=== PATIENT | female | born 2000 | race Caucasian/White ===

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

== ENCOUNTER 2021-01-23 06:55 | Inpatient (IN) | payer MEDICAID, SELFPAY ==
[2021-01-23] VITALS (56 sets, daily range): BP systolic 98–155; BP diastolic 55–96; PULSE 57–152; TEMP 36.7–37.5; O2SAT 85–100; BMI 37.1
[2021-01-23] MEDS: Lactated Ringers 1,000 ML 50 ML IV (07:35)
[2021-01-23] MEDS: Oxytocin 30 units/NS 500 ml 30 UNITS/500 ML IV.SOLN IV (07:52)
[2021-01-23 07:53] LABS: Absolute Lymphocyte Count 2.43 X10^3/uL (0.83-4.51); Absolute Neutrophil Count 8.3 X10^3/uL (2.0-7.7); Basophil# 0.04 X10^3/uL; Basophil% 0.3 % (0-1); Eosinophil# 0.31 X10^3/uL; Eosinophils% 2.6 % (0-5); Hematocrit 37.5 % (37-47); Hemoglobin 12.4 g/dL (12.0-15.0); Lymphocyte # 2.43 X10^3/ul (0.83-4.51); Lymphocyte % 20.3 % (19-41); Mean Corp Hgb Conc 33.1 g/dL (32-36); Mean Corpuscular Volume 87.8 fL (81-99); Mean Platelet Vol. 11.1 fl (6.2-12.0); Monocyte% 6.7 % (0-10); NRBC Flagged by Analyzer 0 % (0-5); Neutrophil % 69.3 % (47-70); Platelet Count 257 K/mm3 (150-450); RBC Distribution Width SD 43.8 fl (35.1-43.9); Red Blood Count 4.27 M/mm3 (4.2-5.4)
[2021-01-23 09:56] LABS: Amphetamine Urine VISTA NEGATIVE (<1000 ng/mL); Barbiturate Urine VISTA NEGATIVE (< 200 ng/mL); Benzodiazepine Urine VISTA NEGATIVE (< 200 ng/mL); Cocaine Urine VISTA NEGATIVE (< 300 ng/mL); Ecstacy Urine VISTA NEGATIVE (< 500 ng/mL); Methadone Urine VISTA NEGATIVE (< 300 ng/mL); PCP Urine VISTA NEGATIVE (< 25 ng/mL); THC Urine VISTA POSITIVE (< 50 ng/mL); Vista UDS pH Range 7
[2021-01-23] MEDS: Lactated Ringers 500 ML 999 ML IV (11:30)
[2021-01-23] MEDS: fentaNYL-bupivacaine (epidural) 100 ML BAG EPIDURAL ×2 (12:40→17:46)
[2021-01-23] MEDS: Lactated Ringers 1,000 ML 200 ML IV (15:12)
[2021-01-23] MEDS: Ondansetron 4 MG/2 ML Vial IV (15:32)
[2021-01-23] MEDS: Amnioinfusion- 0.9% NS 1,000 ML IV.SOLN. 200 ML INTRA-UTER (18:27)
--- NOTE | 2021-01-23 18:51 | HP.PCM_ITS ---
History Date of Admission: 01/23/21 Final REGINALD: 01/29/21 Final REGINALD Source: US <20 weeks Gestational age: 39 Weeks and 1 Days History of this : This is a 20 year-old, 4 para 1-0-2-1 at the 9-/7 weeks presents for elective induction of labor., Maternal obesity with current BMI of 37, marijuana use in , and suspected LGA fetus with mall amniotic fluid level. She tested positive for cannabis during the . Obstetrical history is significant for 1 previous full-term vaginal delivery of a 9 pound 6 ounce fetus, ectopic treated with methotrexate, and 1 first trimester miscarriage for which a D&C was not required. Estimated weight on his fetus is 95th percentile by third trimester ultrasound. Allergies No Known Allergies Allergy (Verified 01/23/21 09:17) Home Medications: Home Medications Caplet 01/23/21 Smoking Status: Current every day smoker Alcohol: None Substance Use Type: Marijuana Number of Fetus(es): 1 History Past Pregnancies: Past Pregnancies Delivery Date Name GA/ Weeks Outcome Route Wt Infant Sex Labor Length Anesthesia Delivery Location Provider FOB Expected Delivery Method: Spontaneous Vaginal Review of Systems Constitutional: Denies: Chills, Fever Eyes: Denies: Blurred vision Cardiovascular: Reports: Edema. Denies: Chest Pain, Chest Pressure Respiratory: Denies: Cough, Shortness of Breath Gastrointestinal: Denies: Diarrhea, Nausea Genitourinary: Denies: Dysuria Skin: Denies: Rash Neurological: Denies: Blurred vision, Double vision, Change in Speech, Slurred speech Physical Exam Vitals: Vital Signs Temp Pulse BP Pulse Ox 98.5 F 85 136/74 H 98 01/23/21 14:54 01/23/21 18:50 01/23/21 18:50 01/23/21 17:14 General: Alert, Cooperative, No apparent distress Cardiovascular: Regular rate Lungs: Normal air movement Abdomen: Soft, Non Tender, Non-Distended, Gravid, Appropriate for Gestational Age Extremities:: Other - edema 1+ Neurological: Cranial nerves II-XII grossly intact, Deep Tendon Reflexes 2+/4 and Symmetrical, Neuro grossly intact FLIGHT STEWARD: Normal external genitalia Estimated gestational size: Appropriate for gestational size Presentation: Cephalic Assessment/Plan This is a 20 year-old, 4 para 1-0-2-1 and 1/7 weeks gestation for induction of labor. Estimated weight is 95th percentile. Clinically estimated weight is likely to be between 4000 4500 g. Patient has proven pelvis. Pelvis is clinically adequate to expect vaginal delivery. May have epidural as needed. Pitocin and artificial rupture of membranes for induction.
[2021-01-23] MEDS: Oxytocin 30 units/NS 500 ml 30 UNITS/500 ML IV.SOLN 334 UNITS IV (19:29)
[2021-01-23] MEDS: Methylergonovine 0.2 MG/ML Ampul IM (19:48)
--- NOTE | 2021-01-23 19:57 | OP.PCM_ITS ---
Vaginal Delivery Maternal Presentation: Elective Induction Method of Induction: Pitocin, Amniotomy Amniotic Membrane Rupture Type: Artificial Amniotic Fluid Description: Clear Final REGINALD: 01/29/21 Final REGINALD Source: US <20 weeks Gestational age: 39 Weeks and 1 Days Date of Procedure: 01/23/21 Pre-Operative Diagnosis: labor Post-Operative Diagnosis: same Surgery/ Procedure Performed: Spontaneous Vaginal Delivery Type of Anesthesia: Epidural, Local with 1% lidocaine - 15 cc Description of Procedure: A vigorous male was delivered DORIS over a second-degree perineal laceration. The remainder the infant was delivered with maternal pushing and gentle traction only in less than 15 seconds. The Pitocin infusion was initiated for active management of the third stage. The cord was clamped and cut after 1 minute. The was attended to by the waiting nursing staff. The placenta was delivered spontaneously and intact. The cervix and vagina were intact. The second-degree perineal laceration was repaired with 3-0 Vicryl suture in a running standard fashion. Sponge and needle counts were correct. A vaginal sweep was completed by me. 1 dose of Methergine was given IM for mild atony without hemorrhage. Presentation: DORIS Placental Delivery Description: Spontaneous Placenta Disposition: [facility] Cord Vessel Description: 3 Vessels Nuchal Cord Compression: With compression Cord Entanglement: None Drain: Young to straight drain Estimated Blood Loss: 400 Infant A gender: Male - [place] (1 minute): 9 (5 minute): 9 Episiotomy Description: None Laceration: 2nd degree Medications given after delivery: IV Pitocin Complications: None
[2021-01-23] MEDS: Acetaminophen 500 MG Tablet 1000 MG PO (21:39)
[2021-01-23] MEDS: 0.9% Saline Lock 10 ML Syringe IV (21:58)
[2021-01-24 00:34] VITALS: BP 127/75; PULSE 80; RESP 16; TEMP 36.8
[2021-01-24 04:02] VITALS: BP 115/65; PULSE 85; RESP 14; TEMP 36.2
[2021-01-24 04:15] LABS: Hematocrit 36.2 % (37-47); Hemoglobin 12.2 g/dL (12.0-15.0); Mean Corp Hgb Conc 33.7 g/dL (32-36); Mean Corpuscular Hgb 29.5 pg (27.0-32.0); Mean Corpuscular Volume 87.7 fL (81-99); Mean Platelet Vol. 10.5 fl (6.2-12.0); Platelet Count 208 K/mm3 (150-450); Red Blood Count 4.13 M/mm3 (4.2-5.4)
[2021-01-24 08:20] VITALS: BP 134/84; PULSE 76; RESP 18; TEMP 36.8
[2021-01-24] MEDS: Senna/Docusate Sodium 1 Tablet PO (08:29)
[2021-01-24] MEDS: Ibuprofen 600 MG Tablet PO ×2 (08:29→15:51)
--- NOTE | 2021-01-24 09:47 | DCINST_ITS ---
Discharge Diet: No Restrictions Discharge Activity: Return to Normal Activity, May not drive while taking narcotic pain medications., May Shower May resume sexual activity in: 4-6 weeks Additional Activity Instructions:: Nothing in the vagina for 4-6 weeks. You may return to work/school in 6 weeks. Call your doctor if your incision/area has: Continuous Slow Oozing, Sudden Increased Bleeding, Increased Pain/ Swelling, Increased Redness, Foul Smelling Discharge Additional Instructions: If you experience any of the following, contact your healthcare provider. * Bleeding that soaks a pad every hour for 2 hours * Fever 100.4 or higher * Unrelieved incision or abdominal pain * Swelling, redness, discharge or bleeding from your incision or episiotomy site * Your incision begins to separate * Problems urinating (including inability to urinate or burning while urinating). * Visual changes * Severe headache * Flu-like symptoms * Pain or redness in one of both of your breasts * Pain, warmth, tenderness or swelling in your legs, especially the calf area * Frequent nausea and vomiting * Symptoms of depression or anxiety If you experience any of the following, call 911 or go to the nearest Emergency Room. * Chest pain * Problems breathing * Seizure activity * Partial or complete paralysis of a body part, slurred speech, weakness or drooping of the face, or a sudden inability to walk or hold your balance Allergies/Adverse Reactions: Allergies No Known Allergies Allergy (Verified 01/23/21 09:17) Medications to take at Discharge Caplet 01/23/21 Ibuprofen [Motrin] 600 mg PO Q6H PRN #60 tab 01/24/21 The following prescriptions were given: Ibuprofen [Motrin] 600 mg PO Q6H PRN #60 tab PRN Reason: Pain Transmission Status: Pending to [facility] Please Follow Up With: Geri Carrero MD - [phone] When: Call to make an appointment with your doctor's office in 1-2 and 6 weeks or as needed Primary Care Physician: Luis Ibrahim MD [Primary Care Provider] - Test Results: Test results from this visit will be discussed in further detail at your follow- up appointment, if applicable.
--- NOTE | 2021-01-24 09:47 | PCM.DCVAG ---
Discharge Diet: No Restrictions Discharge Activity: Return to Normal Activity, May not drive while taking narcotic pain medications., May Shower May resume sexual activity in: 4-6 weeks Additional Activity Instructions:: Nothing in the vagina for 4-6 weeks. You may return to work/school in 6 weeks. Call your doctor if your incision/area has: Continuous Slow Oozing, Sudden Increased Bleeding, Increased Pain/ Swelling, Increased Redness, Foul Smelling Discharge Additional Instructions: If you experience any of the following, contact your healthcare provider. Bleeding that soaks a pad every hour for 2 hours Fever 100.4 or higher Unrelieved incision or abdominal pain Swelling, redness, discharge or bleeding from your incision or episiotomy site Your incision begins to separate Problems urinating (including inability to urinate or burning while urinating). Visual changes Severe headache Flu-like symptoms Pain or redness in one of both of your breasts Pain, warmth, tenderness or swelling in your legs, especially the calf area Frequent nausea and vomiting Symptoms of depression or anxiety If you experience any of the following, call 911 or go to the nearest Emergency Room. Chest pain Problems breathing Seizure activity Partial or complete paralysis of a body part, slurred speech, weakness or drooping of the face, or a sudden inability to walk or hold your balance Allergies/Adverse Reactions: Allergies No Known Allergies Allergy (Verified 01/23/21 09:17) Medications to take at Discharge Cap[place] 01/23/21 Ibuprofen [Motrin] 600 mg PO Q6H PRN #60 tab 01/24/21 The following prescriptions were given: Ibuprofen [Motrin] 600 mg PO Q6H PRN #60 tab PRN Reason: Pain Transmission Status: Pending to [facility] Please Follow Up With: Geri Carrero MD - [phone] When: Call to make an appointment with your doctor's office in 1-2 and 6 weeks or as needed Primary Care Physician: Luis Ibrahim MD [Primary Care Provider] - Test Results: Test results from this visit will be discussed in further detail at your follow-up appointment, if applicable.
--- NOTE | 2021-01-24 09:47 | PCM.PN.OB ---
Subjective: Pain well controlled, average lochia. - Physical Exam Vitals/I&O's: Vital Signs Temp Pulse Resp BP Pulse Ox 98.2 F 76 18 134/84 H 98 01/24/21 08:20 01/24/21 08:20 01/24/21 08:20 01/24/21 08:20 01/23/21 21:55 Oxygen Delivery Method Room Air Weight: 104.326 kg Body Mass Index (BMI) 37.1 Intake and Output for Last 24 Hours 01/22/21 01/23/21 01/24/21 23:59 23:59 23:59 Intake Total 2856.66 / 2856.66 500 / 500 Output Total 1050 / 1050 600 / 600 Balance 1806.66 / 1806.66 -100 / -100 General: Alert, Cooperative, No apparent distress Microbiology Past 72 Hours 01/23/21 08:50 Mucosa - Nose SARS-CoV-2 Antigen (Rapid) - Final Laboratory Results 01/23/21 08:50: Urine Opiates Screen NEGATIVE, Urine Methadone Screen NEGATIVE, Ur Barbiturates Screen NEGATIVE, Ur Phencyclidine Scrn NEGATIVE, Ur Amphetamines Screen NEGATIVE, U Methamphetamin-MDMA NEGATIVE, U Benzodiazepines Scrn NEGATIVE, Urine Cocaine Screen NEGATIVE, U Cannabinoids Screen POSITIVE H 01/24/21 04:10: WBC 18.0 H, RBC 4.13 L, Hgb 12.2, Hct 36.2 L, MCV 87.7, MCH 29.5, MCHC 33.7, RDW Std Deviation 44.0 H, RDW Coeff of Steph 14.0, Plt Count 208, MPV 10.5 Current Medications Acetaminophen (Acetaminophen 500 Mg Tablet) 1,000 mg PO Q8H PRN PRN PRN Reason: Pain Score 1-3 Last Admin: 01/23/21 21:39 Dose: 1,000 mg Documented by: Bisacodyl (Bisacodyl 10 Mg Suppository) 10 mg RC UD PRN PRN Reason: If no BM Dibucaine (Dibucaine 30 Gm Tube) 1 applic TOPICAL TID PRN PRN; Protocol PRN Reason: Discomfort Hydrocortisone (Hydrocortisone 2.5% Crm) 1 applic TOPICAL TID PRN PRN; Protocol PRN Reason: Discomfort Ibuprofen (Ibuprofen 600 Mg Tablet) 600 mg PO Q6H PRN PRN PRN Reason: Pain Score 1-3 Last Admin: 01/24/21 08:29 Dose: 600 mg Documented by: Methylergonovine Maleate (Methylergonovine 0.2 Mg/Ml Ampul) 0.2 mg IM X1 PRN PRN Reason: Excess bleeding/uterine atony Ondansetron HCl (Ondansetron 4 Mg/2 Ml Vial) 4 mg IV Q4H PRN PRN PRN Reason: Nausea Oxycodone HCl (Oxycodone 5 Mg Tablet) 5 - 10 mg PO Q4H PRN PRN PRN Reason: Pain Score 4-10 Prochlorperazine Edisylate (Prochlorperazine 10 Mg/2 Ml Vial) 10 mg IV Q6H PRN PRN PRN Reason: NAUSEA/VOMITING Senna/Docusate Sodium (Senna/Docusate Sodium 1 Tablet) 1 - 2 tablet PO DAILY PRN PRN PRN Reason: Constipation Last Admin: 01/24/21 08:29 Dose: 2 tablet Documented by: Simethicone (Simethicone 80 Mg Tablet) 80 mg PO PCHS PRN PRN Reason: Indigestion/Stomach pain Sodium Chloride (0.9% Saline Lock 10 Ml Syringe) 5 - 15 ml IV UD PRN PRN Reason: SALINE FLUSH Last Admin: 01/23/21 21:58 Dose: 10 ml Documented by: Medical Necessity - Tobacco Use Smoking Status: Current every day smoker Assessment/Plan day #1 status post vaginal delivery. Patient desires discharge home today. Okay to discharge home if okay with pediatrics. Blood count is stable. Routine care.
[2021-01-24 11:35] VITALS: BP 126/77; PULSE 75; RESP 16; TEMP 36.6
[2021-01-24 15:45] VITALS: BP 128/80; PULSE 78; RESP 18; TEMP 36.3
--- NOTE | 2021-01-24 17:40 | CASEMGMT ---
Social Work Assessment Labor and Delivery Unit Date of Referral: 01/23/21 Time of Referral: 21:42 Referred By: Dr. Carrero Date of Intervention: 01/24/21 Time of Intervention: 17:40 Reason for Referral: MOB with THC use during , positive THC upon admission History obtained from: Medical chart and mother of baby (MOB) Household composition: MOB, fiance/FOB, Jas Delgado and 4 y/o daughter-Mervat Shay. Educational Status: MOB reports high school graduate. 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 Childcare/Caregiver(s): MOB and FOB reports will be main caregivers for baby Oj avendaño Transportation: MOB denies any issues with transportation Programs/Agencies Involved: [facility], [facility]. MOB open to referral for [facility] Children Services/Legal Issues: MOB reports CSB involvement as a child due to her mother's substance abuse. MOB reports was never removed from mother's home as she got help. Behavioral Health Issues: Mental Health History: MOB admits to history of anxiety. MOB states has never sought counseling and does report marijuana use to assist in treatment for anxiety. FOB reports history of ADHD and also admits to marijuana use. Substance Use History: FOB and MOB report daily use of marijuana. MOB positive during and upon admission. Meconium collected and results will be reported to [facility]. Family History: MOB reports her mother abused meth. Support Systems: MOB reports good support from FOB and her family. Depression and Anxiety/Shaken Baby/Safe Sleeping/[facility]: Resources provided and discussed. MOB open to referral to [facility]. ASSESSMENT: Met with MOB and FOB in room. Introduced role and reason for referral. MOB open to speaking with this worker and identified reason for SW involvement was due to marijuana use. MOB calm and cooperative with assessment. MOB answered all questions open and honestly. MOB and FOB understand report will be made to [facility] due to marijuana use during and plan to continue use once home. Safe Plan of Care for related to substance use: MOB reports does not smoke inside the home and marijuana is locked up. MOB states takes turns with FOB smoking outside the home. MOB states if FOB not home, will smoke right by the window and baby will be in [employer] right beside the window. PLAN: Call to [facility] worker, Cordell. Report made regarding MOB and FOB's daily use of marijuana, MOB's positive tox screens for THC during and upon admission. Informed Cordell of MOB and FOB's desire and plan to continue use once home. Informed will be calling in with meconium results. Cordell did discuss with cold working supervisor and case will be added in for neglect. Cordell reports MOB and FOB able to discharge home with baby. Cordell states further determination of case will be discussed Tuesday. Nursing updated on the above. Nursing reports no further concerns. Syed Ovalle, BALLISTICIAN, RESTAURANT MAINTENANCE TECHNICIAN
[2021-01-24] MEDS: Acetaminophen 500 MG Tablet 1000 MG PO (18:41)
[2021-01-24 20:30] VITALS: BP 123/76; PULSE 69; RESP 16; TEMP 36.4; O2SAT 98
== END 2021-01-24 21:50 | disposition home or self-care (01) | DRG 560 ==
PROVIDERS: Admitting Provider Obstetrics & Gynecology; PCP Pediatrics; Referring Provider Obstetrics & Gynecology; Visit Provider Obstetrics & Gynecology
DX: O36.63X0 Maternal care for excessive fetal growth, third trimester, not applicable or unspecified (principal); O69.1XX0 Labor and delivery complicated by cord around neck, with compression, not applicable or unspecified; O70.1 Second degree perineal laceration during delivery; Z20.822 Contact with and (suspected) exposure to COVID-19; O99.324 Drug use complicating childbirth; F12.90 Cannabis use, unspecified, uncomplicated; O99.334 Smoking (tobacco) complicating childbirth; F17.200 Nicotine dependence, unspecified, uncomplicated; O99.214 Obesity complicating childbirth; E66.9 Obesity, unspecified; Z3A.39 39 weeks gestation of pregnancy; Z37.0 Single live birth
CPT/HCPCS: 59025; 59050; 80307; 85025; 85027; 86850; 86900; 86901; 87426; 99218; J7030; J7120; A4216; G0378; J2405

== ENCOUNTER 2023-02-14 14:32 | Emergency (ER) | payer MEDICAID, SELFPAY ==
[2023-02-14 14:33] VITALS: BP 153/96; PULSE 89; RESP 18; TEMP 36.7; O2SAT 98; BMI 39.0
--- NOTE | 2023-02-14 15:49 | CT_ITS ---
STUDY: CT FACIAL BONES WITHOUT CONTRAST REASON FOR EXAM: Female, 22 years old. left jaw pain RADIATION DOSAGE (If Supplied By Facility): CTDIvol = ( 29.38 ) mGy, DLP = ( 488.69 ) mGycm TECHNIQUE: The patient was scanned in a multi detector CT scanner. Sagittal and coronal images were reconstructed. Individualized dose optimization techniques were used for this CT. COMPARISON: None. FINDINGS: Normal soft tissue structures. Normal orbital jordan and orbital contents. Normal nasal bones and anterior nasal spine. Normal facial bones. There is no demonstrated fracture. Minor mucosal thickening in the ethmoid air cells bilaterally.. CT/Sinus/Facial Bone IMPRESSION: No evidence for acute facial bone fracture. Minor bilateral ethmoid sinus disease likely chronic Electronically Signed: Dylon Cruz MD at 16:20 EDT ,
--- NOTE | 2023-02-14 15:49 | CT_ITS ---
STUDY: CT BRAIN WITHOUT CONTRAST REASON FOR EXAM: Female, 22 years old. head injury RADIATION DOSAGE (If Supplied By Facility): CTDIvol = ( 44.99 ) mGy, DLP = ( 762.36 ) mGycm TECHNIQUE: Transaxial CT imaging of the brain was performed without administration of intravenous contrast material. Individualized dose optimization techniques were used for this CT. COMPARISON: No relevant priors. FINDINGS: Soft tissue swelling overlying the left parietal bone without associated skull fracture. Normal size ventricles and extra-axial spaces for the patient''s age. Normal white matter tracts of the cerebral hemispheres. Normal basal ganglia and thalami. Normal brainstem. Normal cerebellum. There is no intracranial hemorrhage. There are no findings of an acute ischemic infarction. Normal visualized paranasal sinuses. CT/Brain/Head without Contrast IMPRESSION: Soft tissue swelling in the scalp without associated skull fracture or acute intracranial hemorrhage. Electronically Signed: Dylon Cruz MD at 16:16 EDT ,
--- NOTE | 2023-02-14 15:49 | CT_ITS ---
STUDY: CT CERVICAL SPINE WITHOUT CONTRAST REASON FOR EXAM: Female, 22 years old. neck injury RADIATION DOSAGE (If Supplied By Facility): CTDIvol = ( 27.29 ) mGy, DLP = ( 536.63 ) mGycm TECHNIQUE: High resolution transaxial imaging was performed without contrast material. Sagittal and coronal images were reconstructed. Individualized dose optimization techniques were used for this CT. COMPARISON: None FINDINGS: Normal craniovertebral junction. Normal anterior atlantoaxial articulation. Normal odontoid process. Loss of normal lordotic curvature possibly due to muscle spasm or positioning artifact Normal vertebral bodies and posterior osseous elements. C2-3: Normal endplates. Normal disc height and morphology. Normal central canal and intervertebral neuroforamina. C3-4: Normal endplates. Normal disc height and morphology. Normal central canal and intervertebral neuroforamina. C4-5: Normal endplates. Normal disc height and morphology. Normal central canal and intervertebral neuroforamina. C5-6: Normal endplates. Normal disc height and morphology. Normal central canal and intervertebral neuroforamina. C6-7: Normal endplates. Normal disc height and morphology. Normal central canal and intervertebral neuroforamina. C7-T1: Normal endplates. Normal disc height and morphology. Normal central canal and intervertebral neuroforamina. Normal visualized soft tissue structures. CT/Spine Cervical without Contras IMPRESSION: Straightening of normal lordotic curvature of uncertain clinical significance. No acute fracture or other significant abnormality. Electronically Signed: Dylon Cruz MD at 16:17 EDT ,
--- NOTE | 2023-02-14 15:49 | EX.ED.GENINJ ---
HPI History of Present Illness Chief Complaint: Head Injury Narrative Narrative: 22-year-old female presenting with headache. She states that she was playing in the park with her child and slipped falling backwards hitting her head. She has a small cephalohematoma. She does not have any dizziness. She does have a little bit of nausea. No light or sound sensitivity. No visual disturbance. She states that after about a minute she was able to get up but does feel very tired. PFSH PFSH Medical History no medical history Home Medications Caplet 01/23/21 [History Last Taken 01/20/21] ibuprofen 600 mg tablet 600 mg PO Q6H PRN Pain #60 TABLETS 01/24/21 [Rx Last Taken Unknown] Allergy/AdvReac Type Severity Reaction Status Date / Time No Known Allergies Allergy Verified 02/14/23 14:35 Surgical History no surgical history Social History Smoking Status: Never smoker ROS ROS ED Constitutional Constitutional ED: Denies chills or fever(s) Eyes Eyes: Denies blurry vision or change in vision ENT ENT ED: Denies ear pain or rhinorrhea Cardiovascular Cardiovascular: Denies chest pain or palpitations Respiratory/Chest Respiratory/Chest: Denies cough or dyspnea Gastrointestinal Gastrointestinal: Reports nausea; Denies abdominal pain Genitourinary Genitourinary ED: Denies dysuria or hematuria Musculoskeletal Musculoskeletal: Denies arthralgias or back pain Integumentary Denies abscess or Abrasions Neurologic Neurologic: Reports headache(s); Denies paresthesias Psychiatric Psychiatric: Denies anxiety or depression EXAM Physical Exam Const Vital Signs: 02/14/23 14:33 02/14/23 15:04 Temperature 98.0 F Temperature Source Temporal Pulse Rate 89 Respiratory Rate 18 Respiratory Effort Normal Non-Labored Respiratory Depth Normal Respiratory Pattern Normal Blood Pressure 153/96 H Blood Pressure Mean 115 Pulse Ox 98 Oxygen Delivery Method Room Air Room Air Positive well nourished General Appearance ED: NAD FRANCISCO SINGH Narrative: Small cephalhematoma on the left occiput. No lacerations. Tenderness to palpation to the left mandible at the angle. No deformity. No jaw malocclusion. No edema/erythema. Eyes PERRL and EOMs intact bilaterally Neck full ROM Chest Wall inspection of chest normal and palpation of chest normal Resp normal respiratory effort Cardio regular rhythm Rate: regular rate Extremity normal to inspection and full ROM Neuro oriented x3, CN's II-XII intact bilaterally, moves all extremities, no focal motor deficits and no sensory deficits noted Sensorium / Orientation: alert Motor Exam: strength 5/5 throughout Psych mental status grossly normal and thought process normal Skin no rashes or lesions noted MDM MDM MDM Narrative Medical decision making narrative: 2-year-old female presenting with posterior head pain after which she hit her head. She did not lose consciousness but states she was having difficulty getting off the ground for about 1 minute. She has some mild nausea which resolved. Patient also stated she feels tired. I suspect she had minimum has a concussion, but since she hit the ground so hard we did obtain a CT of the brain which was negative for acute intracranial findings. Patient counseled on findings. He is given concussion precautions. Discharged stable condition. Impression: 1. Closed head injury 2. Concussion 3. Cephalohematoma Radiography Diagnostic Testing: Clinical Impression(s) from Imaging Studies Brain CT 02/14/23 15:49 IMPRESSION: Soft tissue swelling in the scalp without associated skull fracture or acute intracranial hemorrhage. Electronically Signed: Dylon Cruz MD at 16:16 EDT , Cervical Spine CT 02/14/23 15:49 IMPRESSION: Straightening of normal lordotic curvature of uncertain clinical significance. No acute fracture or other significant abnormality. Electronically Signed: Dylon Cruz MD at 16:17 EDT , Facial/Sinus 02/14/23 15:49 IMPRESSION: No evidence for acute facial bone fracture. Minor bilateral ethmoid sinus disease likely chronic Electronically Signed: Dylon Cruz MD at 16:20 EDT , Discharge Plan Triage Chief Complaint: Head Injury ED Provider: Shubham,Royer Dx/Rx/DC Orders Prescriptions: No Action Caplet ibuprofen 600 MG tablet 600 mg PO Q6H PRN (Reason: Pain) Qty: 60 1RF Primary Care Provider: Ady Barr Referrals: Ady Barr MD [Primary Care Provider] - Disposition Disposition: Home, Self Care
[2023-02-14] MEDS: Acetaminophen 500 MG Tablet 1000 MG PO (16:37)
== END 2023-02-14 17:08 | disposition home or self-care (01) ==
PROVIDERS: Emergency Provider Student in an Organized Health Care Education/Training Program; PCP Family Medicine; Visit Provider Student in an Organized Health Care Education/Training Program
DX: S06.0X0A Concussion without loss of consciousness, initial encounter (principal); W01.0XXA Fall on same level from slipping, tripping and stumbling without subsequent striking against object, initial encounter
CPT/HCPCS: 70450; 70486; 72125; 99283

== ENCOUNTER 2023-03-17 07:00 | Inpatient (IN) | payer MEDICAID, SELFPAY ==
[2023-03-17] VITALS (45 sets, daily range): BP systolic 118–144; BP diastolic 58–92; PULSE 67–101; RESP 16–24; TEMP 36.2–37.1; O2SAT 92–100; BMI 40.0
[2023-03-17] MEDS: Lactated Ringers 1,000 ML 50 ML IV (08:00)
[2023-03-17 08:24] LABS: Absolute Lymphocyte Count 1.94 X10^3/uL (0.83-4.51); Basophil# 0.02 X10^3/uL; Basophil% 0.2 % (0-1); Eosinophil# 0.11 X10^3/uL; Eosinophils% 1.1 % (0-5); Hematocrit 34.3 % (37-47); Hemoglobin 10.8 g/dL (12.0-15.0); Lymphocyte # 1.94 X10^3/ul (0.83-4.51); Lymphocyte % 19.7 % (19-41); Mean Corp Hgb Conc 31.5 g/dL (32-36); Mean Corpuscular Hgb 25.9 pg (27.0-32.0); Mean Corpuscular Volume 82.3 fL (81-99); Mean Platelet Vol. 11.2 fl (6.2-12.0); Monocyte% 7.1 % (0-10); NRBC Flagged by Analyzer 0 % (0-5); Neutrophil # 6.99 X10^3/uL (2.7-7.7); Neutrophil % 71.2 % (47-70); Platelet Count 254 K/mm3 (150-450); RBC Distribution Width CV 14.6 % (11.6-14.6); RBC Distribution Width SD 42.9 fl (35.1-43.9); Red Blood Count 4.17 M/mm3 (4.2-5.4); White Blood Count 9.8 K/mm3 (4.4-11.0)
[2023-03-17] MEDS: Oxytocin 15 Units/NS 250ml 15 UNITS/250 ML IV.SOLN 2 UNITS IV (08:25)
[2023-03-17 09:10] LABS: Syphilis Antibodies Non-reactive
--- NOTE | 2023-03-17 09:47 | PCM.HP.OB ---
HPI - General General Date of Admission: 03/17/23 Date of Service: 03/17/23 Chief Complaint: HPI Narrative LOVELY JACOBS, is a 22-year-old female 5 para 2-0-2-2 who presents at 39-1/7 weeks gestation for elective induction of labor. She denies any vaginal bleeding or leaking of fluid. She has had some irregular contractions. Maternal Data Information Final REGINALD: 03/23/23 Gestational age: 39 1/7 PFSH PFSH Home Medications Caplet See Rx Instructions .Route .COMPLEX 01/23/21 [History Last Taken 03/16/23 20:00] Allergy/AdvReac Type Severity Reaction Status Date / Time No Known Allergies Allergy Verified 03/17/23 07:21 Surgical History (Updated 03/17/23 @ 07:57 by Missy Cristina) History of surgery Social History Smoking Status: Never smoker History Elective abortions Hx Para 2 Spontaneous abortions Hx # Term Pregnancies Ectopic pregnancies Hx # Pregnancies Multiple births # of living children ROS Constitutional Constitutional: Denies fatigue, fever(s) or malaise Eyes Eyes: Denies change in vision ENT HEENT: Denies dizziness or headache(s) Cardiovascular Cardiovascular: Denies chest pain, dyspnea or lightheadedness Respiratory/Chest Respiratory/Chest: Denies cough or dyspnea Gastrointestinal Gastrointestinal: Denies change in bowel habits Genitourinary Genitourinary: Denies burning urination or genital lesions Integumentary Integumentary: Denies rash Neurologic Neurologic: Denies confusion, dizziness, headache(s), numbness or weakness Vital Signs Vital Signs Vital Signs: 03/17/23 09:01 03/17/23 09:01 03/17/23 09:01 Temperature Temperature Source Temporal Pulse Rate 88 Blood Pressure 135/83 H BP Systolic 135 BP Diastolic 83 Pulse Ox 03/17/23 09:02 03/17/23 09:02 03/17/23 09:01 Temperature 98.1 F Temperature Source Pulse Rate 94 Blood Pressure BP Systolic BP Diastolic Pulse Ox 97 03/17/23 09:16 03/17/23 09:16 Temperature Temperature Source Pulse Rate 83 Blood Pressure 137/80 H BP Systolic 137 BP Diastolic 80 Pulse Ox Weight Weight: 112.491 kg Body Mass Index (BMI) 40.0 Physical Exam Const alert and no apparent distress General Appearance: cooperative HEENT normocephalic Resp normal respiratory effort Cardio regular rate GI soft to palpation GI Narrative: gravid, nontender, appropriate for gestational age Extremity no calf tenderness General Extremity: edema Skin no wounds Rashes: No rashes noted Psych activity/motor behavior normal Labs Labs Labs: Blood Type A POSITIVE Antibody Screen NEGATIVE Hct 34.3 % (37-47) L Hgb 10.8 g/dL (12.0-15.0) L Obstetrics US Syphilis Total Ab Non-reactive Rhogam given: No Assessment & Plan (1) 39 weeks gestation of : PLAN: Risk benefits and alternatives to elective induction labor him discussed with patient, her questions were answered to her satisfaction she desires to proceed. Estimated weight is less than 4500 g clinically and pelvis clinically adequate to expect vaginal delivery. May have epidural, nitrous oxide or other pain relieving measures as indicated and as desired. (2) Multigravida:
[2023-03-17] MEDS: LACTATED RINGERS 500 ML 999 ML IV (10:28)
[2023-03-17 10:37] LABS: Amphetamine Urine VISTA NEGATIVE (<1000 ng/mL); Barbiturate Urine VISTA NEGATIVE (< 200 ng/mL); Benzodiazepine Urine VISTA NEGATIVE (< 200 ng/mL); Cocaine Urine VISTA NEGATIVE (< 300 ng/mL); Ecstacy Urine VISTA NEGATIVE (< 500 ng/mL); Methadone Urine VISTA NEGATIVE (< 300 ng/mL); PCP Urine VISTA NEGATIVE (< 25 ng/mL); THC Urine VISTA POSITIVE (< 50 ng/mL); Vista UDS pH Range 7
[2023-03-17] MEDS: fentaNYL-bupivacaine (epidural) 100 ML BAG EPIDURAL (11:09)
[2023-03-17] MEDS: Penicillin G 3,000,000 Units 50 ML 100 UNITS IV (13:24)
[2023-03-17] MEDS: Oxytocin 15 Units/NS 250ml 15 UNITS/250 ML IV.SOLN 83 UNITS IV (14:53)
[2023-03-17] MEDS: Lactated Ringers 1,000 ML 334 ML IV (15:00)
--- NOTE | 2023-03-17 15:06 | EX.PCM.OBRPT ---
Maternal Data Information Final REGINALD: 03/23/23 Gestational age: 39&1 Vaginal Delivery Maternal Presentation Maternal Presentation: Elective Induction Type of Induction: Pitocin and Amniotomy Operative Information Date of Procedure: 03/17/23 Pre-Operative Diagnosis: Maternal request for elective induction of labor Post-Operative Diagnosis: Same Surgery / Procedure Performed: Spontaneous Vaginal Delivery Type of Anesthesia: Epidural Estimated Blood Loss: 300ml Findings Description of Procedure: Patient prepped & draped when C/C/+2. She pushed well to deliver the head. head gently guided to allow delivery of anterior and posterior shoulders. No excess traction placed on head. Body delivered and 3VC clamped & cut in delayed fashion. Placenta delivered with gentle traction and good uterine tone obtained. Presentation: DORIS Amniotic Membrane Rupture Type: Artificial Amniotic Fluid Description: Clear Placental Delivery Description: Expressed Placenta Disposition: [facility] Specimen(s) Removed: Placenta Cord Vessel Description: 3 Vessels Cord Entanglement: Around neck x 1, loose Nuchal Cord Compression: Without compression Infant A Gender: Male (1 minute): 7 (5 minute): 9 Delayed Cord Clamping: Yes Post Vaginal Delivery Medications Given After Delivery: IV Pitocin Episiotomy Description: None Laceration: 1st degree (vaginal - repaired with 3-0 vicryl) Complication Complications: None
[2023-03-17] MEDS: Acetaminophen 500 MG Tablet 1000 MG PO (21:06)
[2023-03-18] VITALS (8 sets, daily range): BP systolic 120–139; BP diastolic 53–83; PULSE 68–85; RESP 14–16; TEMP 36.2–36.8; O2SAT 95–98
[2023-03-18] MEDS: Ibuprofen 600 MG Tablet PO ×2 (01:38→10:12)
--- NOTE | 2023-03-18 08:32 | PCM.PN.OB ---
Subjective Subjective Patient seen at bedside. Feeling good. Denies any pain. Ambulating and voiding without difficulty. Lochia decreasing. Objective Data Objective Data Vital Signs: Vital Signs Temp Pulse Resp BP Pulse Ox O2 Del Method 97.2 F L 75 14 135/82 H 98 Room Air 03/18/23 07:49 03/18/23 07:49 03/18/23 07:49 03/18/23 07:49 03/18/23 07:49 03/18/23 07:49 Oxygen Delivery Method Room Air Weight: 248 lb Body Mass Index (BMI) 40.0 Intake & Output: Intake and Output for Last 24 Hours 03/16/23 03/17/23 03/18/23 23:59 23:59 23:59 Intake Total 2934.60 / 2934.60 Output Total 2410 / 2410 Balance 524.60 / 524.60 Lab / Micro Data Result Diagrams: 03/17/23 08:00 Labs: Laboratory Results - last 24 hr 03/17/23 08:00: Blood Type A POSITIVE, Antibody Screen NEGATIVE 03/17/23 08:00: Syphilis Total Ab Non-reactive 03/17/23 09:45: Urine Opiates Screen NEGATIVE, Urine Methadone Screen NEGATIVE, Ur Barbiturates Screen NEGATIVE, Ur Phencyclidine Scrn NEGATIVE, Ur Amphetamines Screen NEGATIVE, MDMA (Ecstasy) Screen NEGATIVE, U Benzodiazepines Scrn NEGATIVE, Urine Cocaine Screen NEGATIVE, U Cannabinoids Screen POSITIVE H, Ur Drug Screen Comment ROS Eyes Eyes: Denies blurry vision, change in vision or spots in vision ENT HEENT: Denies dizziness or headache(s) Cardiovascular Cardiovascular: Denies abdominal pain, chest pain or dyspnea Respiratory/Chest Respiratory/Chest: Denies cough, dyspnea, shortness of breath at rest or shortness of breath with exertion Gastrointestinal Gastrointestinal: Denies abdominal pain, diarrhea or vomiting Genitourinary Genitourinary: Denies change in urinary stream, difficulty urinating or dysuria Musculoskeletal Musculoskeletal: Reports none Integumentary Integumentary: Denies rash Neurologic Neurologic: Denies dizziness, headache(s), memory loss or weakness Physical Exam Const alert and no apparent distress General Appearance: cooperative and comfortable Exam Limitations: no limitations HEENT normocephalic Eyes General Eye: normal appearance of both eyes Neck full ROM General: normal visual inspection Chest Chest: symmetrical chest wall rise Resp normal respiratory effort and normal air movement Effort and Inspection: symmetric chest movement Auscultation: clear to auscultation bilaterally Cardio regular rate and regular rhythm GI normal to inspection, nondistended, normoactive bowel sounds Back/Spine normal ROM Extremity full ROM and no calf tenderness General Extremity: normal exam except as noted Skin no rashes or lesions noted Neuro CN's II-XII intact bilaterally Psych mental status grossly normal Assessment & Plan (1) (spontaneous vaginal delivery): PLAN: Plan PPD 1 Formula feeding Ambulating and voiding without difficulty Desires discharge home today at 24 hours Will follow up in office
--- NOTE | 2023-03-18 08:34 | DCINST_ITS ---
Discharge Instructions Diet Discharge Diet: No restrictions Activity Discharge Activity: Return to Normal Activity, May Shower and May Take a Tub Bath May resume sexual activity in: 4-6 weeks Weight Bearing Status: Weight bearing as tolerated Dressing / Incision Call your doctor if you observe: Inability to urinate, Using more than 1 pad per hour, Shortness of breath, Dizziness, Swelling in the ankles, Chest pain, Calf discomfort and Uncontrolled pain Follow Up Care When: Within 14 days Test Results: Test results from this visit will be discussed in further detail at your follow- up appointment, if applicable. Discharge Plan Admission Admit Date/Time: 03/17/23 07:00 Primary Reason for Your Visit: Labor and Delivery Attending Provider: Joe Corcoran Primary Care Provider: Ady Barr Discharge Orders/Prescriptions Prescriptions: Continued Caplet tablet See Rx Instructions .ROUTE .COMPLEX Rx Instructions: 1 tablet daily Referrals / Follow Up: Ady Barr MD [Primary Care Provider] - Disposition Disposition (needs filled in before D/C Order can be placed): Home, Self Care
[2023-03-18] MEDS: Acetaminophen 500 MG Tablet 1000 MG PO (10:12)
== END 2023-03-18 16:15 | disposition home or self-care (01) | DRG 560 ==
PROVIDERS: Obstetrics & Gynecology; Admitting Provider Obstetrics & Gynecology; PCP Family Medicine; Referring Provider Obstetrics & Gynecology; Visit Provider Obstetrics & Gynecology
DX: O69.81X0 Labor and delivery complicated by cord around neck, without compression, not applicable or unspecified (principal); Z37.0 Single live birth; O70.0 First degree perineal laceration during delivery; Z3A.39 39 weeks gestation of pregnancy
CPT/HCPCS: 59025; 59050; 80307; 85025; 86780; 86850; 86900; 86901; 99221; J7120; G0378